=== PATIENT | male | born 1985 | race Caucasian/White ===

== ENCOUNTER 2017-08-27 17:59 | Emergency (ER) | payer OTHER ==
--- NOTE | 2017-08-27 18:32 | EDM.PDOC ---
ED HPI GENERAL MEDICAL PROBLEM - General Chief Complaint: Skin Complaint Stated Complaint: RASH TO LEFT ELBOW Time Seen by Provider: 08/27/17 18:30 Source of Information: Reports: Patient History Limitations: Reports: No Limitations - History of Present Illness INITIAL COMMENTS - FREE TEXT/NARRATIVE: HISTORY AND PHYSICAL: History of present illness: [Patient comes to the emergency room complaining of itchy lesions to left elbow and forearm and both knees. Patient is new to town and arrived on Monday afternoon. He spent the night in a local hotel. Monday he developed red raised lesions to his elbows and forearms. These have been extremely itchy. He denies any pain. This gradually spread to both knees ankles and feet. He denies any torso or back involvement. He has used some calamine lotion without significant improvement in itching. She has not had fever or chills. He initially had no drainage from his lesions. It over the past 24 hours lesions have been more weepy, with purulent drainage. In spite of wearing a long sleeved T-shirt he continues to experience a lot of itching to these lesions. He is trying not to scratch but admits that he is probably doing so during his sleep. He has not recently been in any bushes leads poison boby or tall grass. No other known exposures. He has switched hotels and wash all of his laundry and showered hoping to rid himself of whatever is causing the lesions.. No fever chills no other complaints or concerns. No pain to the affected areas. Review of systems: As per history of present illness and below otherwise all systems reviewed and negative. Past medical history: As per history of present illness and as reviewed below otherwise noncontributory. Surgical history: As per history of present illness and as reviewed below otherwise noncontributory. Social history: No reported history of drug or alcohol abuse. Family history: As per history of present illness and as reviewed below otherwise noncontributory. Physical exam: HEENT: Atraumatic, normocephalic. Skin: Raised pink colored lesions on erythematous base, are confluent to left elbow right inner upper arm. Are weepy and draining clear to yellow colored drainage and some blood. Are also present to bilateral knees, bilateral ankles and lower legs, but are less severe. Bites appear to be in a linear distribution. No scabies or jennifer type lesions noted. No abscess is appreciated. Skin is otherwise warm dry pink and intact. Extremities: Atraumatic. Neurovascular unremarkable. Neuro: Awake, alert, oriented. Motor and sensory unremarkable throughout. Exam nonfocal. Impression: [Cellulitis to left elbow and forearm Skin lesions] Plan: [Patient is given a prescription for Keflex 500 mg 4 times a day 10 days. Recommend Benadryl, calamine lotion, keep clean and dry. Establish care with a local PCP to follow-up. Return to ER as needed as we discussed. He is in agreement with today's plan.] Definitive disposition and diagnosis as appropriate pending reevaluation and review of above. Left Arm Pain Score (Numeric/FACES): 2 - Related Data Allergies Allergy/AdvReac Type Severity Reaction Status Date / Time chlorhexidine Allergy Rash Verified 08/27/17 18:26 chloraprep Allergy Rash Uncoded 08/27/17 18:26 Home Meds: Home Meds . [No Known Home Meds] 08/27/17 [History] ED ROS GENERAL - Review of Systems Review Of Systems: ROS reveals no pertinent complaints other than HPI. ED EXAM, SKIN/RASH Exam: See Below Course - Vital Signs Last Recorded V/S: Last Vital Signs Temp 97.7 F 08/27/17 18:20 Pulse 73 08/27/17 18:20 Resp 18 08/27/17 18:20 BP 129/89 08/27/17 18:20 Pulse Ox 94 L 08/27/17 18:20 Departure - Departure Time of Disposition: 18:45 Disposition: Home, Self-Care 01 Condition: Good Clinical Impression: Cellulitis - Discharge Information Instructions: Cellulitis, Adult Referrals: PCP,None [Primary Care Provider] - Forms: ED Department Discharge Additional Instructions: The following information is given to patients seen in the emergency department who are being discharged to home. This information is to outline your options for follow-up care. We provide all patients seen in our emergency department with a follow-up referral. The need for follow-up, as well as the timing and circumstances, are variable depending upon the specifics of your emergency department visit. If you don't have a primary care physician on staff, we will provide you with a referral. We always advise you to contact your personal physician following an emergency department visit to inform them of the circumstance of the visit and for follow-up with them and/or the need for any referrals to a consulting specialist. The emergency department will also refer you to a specialist when appropriate. This referral assures that you have the opportunity for follow-up care with a specialist. All of these measure are taken in an effort to provide you with optimal care, which includes your follow-up. Under all circumstances we always encourage you to contact your private physician who remains a resource for coordinating your care. When calling for follow-up care, please make the office aware that this follow-up is from your recent emergency room visit. If for any reason you are refused follow-up, please contact the [facility] emergency department at and asked to speak to the emergency department charge nurse. [facility] [address] [place] [id number] Tablets care with a local primary care provider and follow-up there in the next 48-72 hours. Take antibiotics as prescribed. Benadryl, calamine lotion as needed. Continue Claritin daily. Return to ER as needed as discussed.
== END 2017-08-27 18:59 | disposition home or self-care (01) ==
LOC: MW.ED 17:59
DX: L03.114 Cellulitis of left upper limb (principal); Z88.8 Allergy status to other drugs, medicaments and biological substances
CPT/HCPCS: 99282

== ENCOUNTER 2017-08-28 03:24 | Emergency (ER) | payer OTHER ==
--- NOTE | 2017-08-28 03:38 | EDM.PDOC ---
ED HPI GENERAL MEDICAL PROBLEM - General Chief Complaint: Skin Complaint Stated Complaint: RASH ON LEFT ELBOW Time Seen by Provider: 08/28/17 03:35 - History of Present Illness INITIAL COMMENTS - FREE TEXT/NARRATIVE: HISTORY AND PHYSICAL: History of present illness: Patient is a 31-year-old male presents with a concern of rash to his left elbow which is seen prior plan Keflex and Benadryl and returns now for rash has been no change. Main concern relates to its itchiness. Patient requesting dermatology referral Review of systems: As per history of present illness and below otherwise all systems reviewed and negative. Past medical history: As per history of present illness and as reviewed below otherwise noncontributory. Surgical history: As per history of present illness and as reviewed below otherwise noncontributory. Social history: No reported history of drug or alcohol abuse. Family history: As per history of present illness and as reviewed below otherwise noncontributory. Physical exam: HEENT: Atraumatic, normocephalic, pupils reactive, negative for conjunctival pallor or scleral icterus, mucous membranes moist, throat clear, neck supple, nontender, trachea midline. Lungs: Clear to auscultation, breath sounds equal bilaterally, chest nontender. Heart: S1S2, regular, negative for clicks, rubs, or JVD. Abdomen: Soft, nondistended, nontender. Negative for masses or hepatosplenomegaly. Negative for costovertebral tenderness. Pelvis: Stable nontender. Genitourinary: Deferred. Rectal: Deferred. Extremities patient has a large maculopapular type rash to his left elbow Neuro: Awake, alert, oriented. Cranial nerves II through XII unremarkable. Cerebellum unremarkable. Motor and sensory unremarkable throughout. Exam nonfocal. Diagnostics: None Therapeutics: None Impression: #1 rash Definitive disposition and diagnosis as appropriate pending reevaluation and review of above. - Related Data Allergies Allergy/AdvReac Type Severity Reaction Status Date / Time chlorhexidine Allergy Rash Verified 08/27/17 18:26 chloraprep Allergy Rash Uncoded 08/27/17 18:26 Home Meds: Home Meds . [No Known Home Meds] 08/27/17 [History] Past Medical History Cardiovascular History: Reports: Hypertension Musculoskeletal History: Reports: Gout - Past Surgical History HEENT Surgical History: Reports: Oral Surgery GI Surgical History: Reports: Hernia, Abdominal Musculoskeletal Surgical History: Reports: Other (See Below) Other Musculoskeletal Surgeries/Procedures:: achilles tendon repair Social & Family History - Family History Family Medical History: Noncontributory - Caffeine Use Caffeine Use: Reports: None ED ROS GENERAL - Review of Systems Review Of Systems: ROS reveals no pertinent complaints other than HPI. ED EXAM, SKIN/RASH Exam: See Below (See dictation) Departure - Departure Time of Disposition: 03:37 Disposition: Home, Self-Care 01 Condition: Good Clinical Impression: Rash - Discharge Information Referrals: Randy Waters MD [Primary Care Provider] - Additional Instructions: The following information is given to patients seen in the emergency department who are being discharged to home. This information is to outline your options for follow-up care. We provide all patients seen in our emergency department with a follow-up referral. The need for follow-up, as well as the timing and circumstances, are variable depending upon the specifics of your emergency department visit. If you don't have a primary care physician on staff, we will provide you with a referral. We always advise you to contact your personal physician following an emergency department visit to inform them of the circumstance of the visit and for follow-up with them and/or the need for any referrals to a consulting specialist. The emergency department will also refer you to a specialist when appropriate. This referral assures that you have the opportunity for followup care with a specialist. All of these measure are taken in an effort to provide you with optimal care, which includes your followup. Under all circumstances we always encourage you to contact your private physician who remains a resource for coordinating your care. When calling for followup care, please make the office aware that this follow-up is from your recent emergency room visit. If for any reason you are refused follow-up, please contact the [facility] emergency department at and asked to speak to the emergency department charge nurse. Follow-up dermatology as directed continue antibiotics and antihistamines as prescribed return as needed as discussed
== END 2017-08-28 03:58 | disposition home or self-care (01) ==
LOC: MW.ED 03:24
DX: R21 Rash and other nonspecific skin eruption (principal); I10 Essential (primary) hypertension; Z88.8 Allergy status to other drugs, medicaments and biological substances
CPT/HCPCS: 99281; 99282